=== PATIENT | female | born 1960 | race Caucasian/White ===

== ENCOUNTER 2018-09-22 11:34 | Emergency (ER) | payer OTHER ==
--- OUTSIDE RECORDS SUMMARY | 2018-09-22 11:37 | XMS REPORT ---
:1960 [facility] [address] [place] [address] Dr. Fla[address] [place] [id number] Care Team Providers Name Role Phone Unavailable Unavailable Unavailable Payers Payer Name Policy Type Policy Number Effective Date Expiration Date Problems This patient has no known problems. Allergies, Adverse Reactions, Alerts Allergy Allergy Status Severity Reaction(s) Onset Inactive Treating Comments Name Type Date Date Clinician Marin DA Active U 2018-08 (Sulfonami -17 de 00:00:0 Antibiotic 0 s) Medications This patient has no known medications.
[2018-09-22 12:26] LABS: Absolute Lymphocytes (CBC) 1.4 K/uL (0.7-4.9); Absolute Monocytes 0.4 K/uL (0.1-1.3); Absolute Neutrophil 3.1 K/uL (1.8-8.0); Eosinophils % 1.7 % (0-4.4); Lymphocytes % 28.3 % (15.3-44.8); MPV 8.7 fL (7.6-11.3); Monocytes % 7.1 % (3.3-12.3); RBC Red Blood Cell Count 3.92 M/uL (3.86-4.86)
[2018-09-22 12:29] LABS: Protime INR 1.08
--- NOTE | 2018-09-22 12:43 | RAD REPORT ---
EXAM DESCRIPTION: RAD - Chest Single View - 09/22/2018 12:36 pm CLINICAL HISTORY: DYSPNEA Chest pain. COMPARISON: ABDOMEN 1 VIEW KUB dated 11/10/2014; ABDOMEN 1 VIEW KUB dated 11/10/2013; ABDOMEN 1 VIEW KUB dated 11/06/2013; CHEST PA AND LAT 2 VIEW dated 10/31/2013; CTSTONE PROTOCOL dated 11/05/2013; CHEST PA AND LAT 2 VIEW dated 09/18/2011; Abdomen WWo Cont dated 03/05/2018 FINDINGS: Portable technique limits examination quality. The lungs are grossly clear. Significant cardiomegaly versus pericardial effusion present. No displac ed fractures.
[2018-09-22 12:45] LABS: ALT/SGPT 75 U/L (12-78); AST/SGOT 54 U/L (15-37); Albumin 3.7 g/dL (3.4-5.0); Alkaline Phosphatase 120 U/L (45-117); BUN Blood Urea Nitrogen 11 mg/dL (7-18); Bicarbonate 26 mmol/L (21-32); Bilirubin Direct 0.1 mg/dL (0-0.2); Bilirubin Total 0.4 mg/dL (0.2-1.0); Glucose Level 94 mg/dL (74-106); Magnesium 2.4 mg/dL (1.8-2.4); NT PRO-BNP 126 pg/mL (<125); Potassium 3.8 mmol/L (3.5-5.1); Protein, Total 7.5 g/dL (6.4-8.2); Sodium Level 143 mmol/L (136-145); Troponin (Emerg Dept Use Only) < 0.02 ng/mL (0.0-0.045)
--- NOTE | 2018-09-22 14:02 | RAD REPORT ---
EXAM DESCRIPTION: CT - Chest For Pe Angio - 09/22/2018 1:48 pm CLINICAL HISTORY: Chest pain. SOB COMPARISON: No comparisons TECHNIQUE: CT angiogram of the pulmonary arteries was performed with MIP. All CT scans are performed using dose optimization technique as appropriate and may include automated exposure control or mA/KV adjustment according to patient size. FINDINGS: No evidence of pulmonary thromboembolism. No acute aortic finding demonstrated. Mild interstitial pulmonary edema suspected with linear atelectasis in the left lung base. A large pericardial effusion is present, maximally measuring 4.5 cm in thickness. . No concerning bony finding. IMPRESSION: No evidence of pulmonary thromboembolism. Mild interstitial pulmonary edema with linear atelectasis in left lung base. A large pericardial effusion is present, measuring maximally 4.5 cm in thickness.
--- NOTE | 2018-09-22 15:09 | ER ---
Nurse's Notes [facility] Name: Robina Tamayo Age: 57 yrs Sex: Female : 1960 Arrival Date: 09/22/2018 Time: 11:35 Bed 8 Private MD: Brandon Jefferson Diagnosis: Pericardial effusion (noninflammatory);Dyspnea Presentation: 09/22 11:43 Presenting complaint: Patient states: Shortness of breath for the past 2 days. Reports aj1 that she had pericardial window surgery August 27, and the shortness of breath she is feeling now was similar to before she had surgery. Reports that she has shortness of breath just walking to her car. Reports substernal chest pain that she describes as heaviness and pressure that radiates to the right arm. Transition of care: patient was not received from another setting of care. Onset of symptoms was September 20, 2017. Risk Assessment: Do you want to hurt yourself or someone else? Patient reports no desire to harm self or others. Initial Sepsis Screen: Does the patient meet any 2 criteria? No. Patient's initial sepsis screen is negative. Does the patient have a suspected source of infection? No. Patient's initial sepsis screen is negative. Care prior to arrival: None. 11:43 Method Of Arrival: Ambulatory aj1 11:43 Acuity: LYNN 2 aj1 Triage Assessment: 11:47 General: Appears in no apparent distress. uncomfortable, Behavior is calm, cooperative, aj1 appropriate for age. Pain: Complains of pain in mid-sternal area Pain radiates to right arm Pain currently is 6 out of 10 on a pain scale. Neuro: Level of Consciousness is awake, alert, obeys commands. Cardiovascular: Reports chest pain, shortness of breath, Patient's skin is warm and dry. Respiratory: Reports shortness of breath Onset: The symptoms/episode began/occurred 2 days ago. Historical: - Allergies: 11:47 Sulfa (Sulfonamide Antibiotics); aj1 - Home Meds: 11:47 None [Active]; aj1 - PMHx: 11:47 pericardial effusion; aj1 - Immunization history:: Flu vaccine is up to date. - Social history:: Smoking status: Patient/guardian denies using tobacco. - Ebola Screening: : Patient denies travel to an Ebola-affected area in the 21 days before illness onset. Screenin:41 Abuse screen: Denies threats or abuse. Denies injuries from another. Nutritional ph screening: No deficits noted. Tuberculosis screening: No symptoms or risk factors identified. Fall Risk None identified. Assessment: 12:31 General: Appears in no apparent distress. comfortable, Behavior is cooperative, ph appropriate for age, anxious. Pain: Complains of pain in mid-sternal area Pain radiates to right arm Quality of pain is described as pressure. Neuro: Level of Consciousness is awake, alert, obeys commands, Oriented to person, place, time, situation. Cardiovascular: Reports chest pain, shortness of breath, Denies nausea, palpitations, vomiting, Capillary refill < 3 seconds in bilateral fingers Patient's skin is warm and dry. Rhythm is sinus rhythm. Respiratory: Airway is patent Respiratory effort is even, unlabored, Respiratory pattern is regular, symmetrical. 12:31 Respiratory: Reports shortness of breath on exertion Airway is patent Respiratory ph effort is even, unlabored, Respiratory pattern is regular, symmetrical, Breath sounds are clear bilaterally. GI: No signs and/or symptoms were reported involving the gastrointestinal system. Patient currently denies nausea, vomiting. Derm: Skin is intact, is healthy with good turgor, Skin is pink, warm \T\ dry. Musculoskeletal: Circulation, motion, and sensation intact. Range of motion: intact in all extremities. Vital Signs: 11:47 BP 126 / 95; Pulse 81; Resp 18; Temp 98.4; Pulse Ox 97% on R/A; Weight 80.29 kg (R); aj1 Height 5 ft. 2 in. (157.48 cm) (R); Pain 6/10; 12:42 BP 125 / 92; Pulse 71; Resp 18; Pulse Ox 96% on R/A; ph 13:23 BP 123 / 90; Pulse 62; Resp 15; Pulse Ox 94% ; sv 14:56 BP 119 / 75; Pulse 68; Resp 18; Pulse Ox 97% ; sv 15:30 BP 134 / 90; Pulse 71; Resp 13; Pulse Ox 98% on R/A; sv 16:03 BP 134 / 89; Pulse 69; Resp 18; Pulse Ox 97% on R/A; sv 11:47 Body Mass Index 32.37 (80.29 kg, 157.48 cm) [facility] ED Course: 11:35 Patient arrived in ED. sb2 11:35 Brandon Jefferson MD is Private Physician. sb2 11:47 Triage completed. aj1 11:47 Arm band placed on Patient placed in an exam room. aj1 11:[address] MD is Attending Physician. gs 11:52 Lisa José RN is Primary Nurse. ph 12:15 Initial lab(s) drawn, by hi, sent to lab. Inserted saline lock: 20 gauge in right ph antecubital area, using aseptic technique. Blood collected. 12:24 EKG done, by ED staff, reviewed by Pablo Way MD. em1 12:36 XRAY Chest (1 view) In Process Unspecified. EDMS 12:41 Patient has correct armband on for positive identification. Placed in gown. Bed in low ph position. Call light in reach. Side rails up X 1. ehs manager on. Pulse ox on. NIBP on. Door closed. Warm blanket given. Verbal reassurance given. 13:48 CT Chest For PE Angio In Process Unspecified. EDMS 13:48 CT completed. Patient tolerated procedure well. Patient moved back from CT. bq 15:00 No provider procedures requiring assistance completed. Patient transferred, IV remains sv in place. intact. Administered Medications: No medications were administered Outcome: 14:59 Transferred by ground EMS Transfer form completed. X-rays sent w/ patient. Note: sv Report called to Marlen WHITNEY at [facility]. 14:59 Condition: stable 14:59 Instructed on the need for transfer. 15:08 ER care complete, transfer ordered by . 16:30 Patient left the ED. ph Signatures: Dispatcher [employer] EDMS Agnieszka Sargent, RN DEVONTE aj1 Maite Torres RN RN Padmini Cobos Eric em1 iLsa José, RN RN Pablo Way MD MD Eliane Pulido sb2
--- NOTE | 2018-09-22 15:09 | EDPHYS ---
Physician Documentation [facility] Name: Robina Tamayo Age: 57 yrs Sex: Female : 1960 Arrival Date: 09/22/2018 Time: 11:35 Bed 8 Private MD: Brandon Jefferson ED Physician Pablo Way HPI: 09/22 15:00 This 57 yrs old Female presents to ER via Ambulatory with complaints of gs Shortness Of Breath. 15:00 The patient has shortness of breath at rest, with light activity, during heavy gs activity. Onset: The symptoms/episode began/occurred 5 day(s) ago, and became worse and became persistent. Duration: The symptoms are continuous. The patient's shortness of breath is aggravated by exertion. Associated signs and symptoms: Pertinent negatives: chest pain, non-productive cough. Severity of symptoms: At their worst the symptoms were moderate in the emergency department the symptoms are unchanged. The patient has experienced similar episodes in the past, a few times. The patient has been recently seen by a physician: with similar presenting complaints, surgery done pericardial window. Historical: - Allergies: 11:47 Sulfa (Sulfonamide Antibiotics); aj1 - Home Meds: 11:47 None [Active]; aj1 - PMHx: 11:47 pericardial effusion; aj1 - Immunization history:: Flu vaccine is up to date. - Social history:: Smoking status: Patient/guardian denies using tobacco. - Ebola Screening: : Patient denies travel to an Ebola-affected area in the 21 days before illness onset. ROS: 15:00 All other systems are negative. gs Exam: 15:00 Head/Face: Normocephalic, atraumatic. Eyes: Pupils equal round and reactive to light, gs extra-ocular motions intact. Lids and lashes normal. Conjunctiva and sclera are non-icteric and not injected. Cornea within normal limits. Periorbital areas with no swelling, redness, or edema. ENT: Nares patent. No nasal discharge, no septal abnormalities noted. Tympanic membranes are normal and external auditory canals are clear. Oropharynx with no redness, swelling, or masses, exudates, or evidence of obstruction, uvula midline. Mucous membranes moist. Neck: Trachea midline, no thyromegaly or masses palpated, and no cervical lymphadenopathy. Supple, full range of motion without nuchal rigidity, or vertebral point tenderness. No Meningismus. Chest/axilla: Normal chest wall appearance and motion. Nontender with no deformity. No lesions are appreciated. Abdomen/GI: Soft, non-tender, with normal bowel sounds. No distension or tympany. No guarding or rebound. No evidence of tenderness throughout. Back: No spinal tenderness. No costovertebral tenderness. Full range of motion. Skin: Warm, dry with normal turgor. Normal color with no rashes, no lesions, and no evidence of cellulitis. MS/ Extremity: Pulses equal, no cyanosis. Neurovascular intact. Full, normal range of motion. Neuro: Awake and alert, GCS 15, oriented to person, place, time, and situation. Cranial nerves II-XII grossly intact. Motor strength 5/5 in all extremities. Sensory grossly intact. Cerebellar exam normal. Normal gait. 15:00 Constitutional: The patient appears alert, awake. 15:00 Cardiovascular: Rate: normal, Rhythm: regular, Pulses: no pulse deficits are appreciated, Heart sounds: normal. 15:00 ECG was reviewed by the Attending Physician. Vital Signs: 11:47 BP 126 / 95; Pulse 81; Resp 18; Temp 98.4; Pulse Ox 97% on R/A; Weight 80.29 kg (R); aj1 Height 5 ft. 2 in. (157.48 cm) (R); Pain 6/10; 12:42 BP 125 / 92; Pulse 71; Resp 18; Pulse Ox 96% on R/A; ph 13:23 BP 123 / 90; Pulse 62; Resp 15; Pulse Ox 94% ; sv 14:56 BP 119 / 75; Pulse 68; Resp 18; Pulse Ox 97% ; sv 15:30 BP 134 / 90; Pulse 71; Resp 13; Pulse Ox 98% on R/A; sv 16:03 BP 134 / 89; Pulse 69; Resp 18; Pulse Ox 97% on R/A; sv 11:47 Body Mass Index 32.37 (80.29 kg, 157.48 cm) aj1 MDM: 12:03 Patient medically screened. 15:00 Differential diagnosis: CHF exacerbation, Myocardial Infarction pneumonia, pericardial gs effusion. Data reviewed: vital signs, nurses notes. 09/22 12:04 Order name: Basic Metabolic Panel; Complete Time: 13:12 09/22 12:04 Order name: CBC with Diff; Complete Time: 13:12 09/22 12:04 Order name: LFT's; Complete Time: 13:12 09/22 12:04 Order name: Magnesium; Complete Time: 13:12 09/22 12:04 Order name: NT PRO-BNP; Complete Time: 13:12 09/22 12:04 Order name: PT-INR; Complete Time: 13:12 09/22 12:04 Order name: Troponin (emerg Dept Use Only); Complete Time: 13:12 09/22 12:04 Order name: XRAY Chest (1 view); Complete Time: 13:12 09/22 12:04 Order name: EKG; Complete Time: 12:05 09/22 12:04 Order name: Cardiac monitoring; Complete Time: 12:43 09/22 12:04 Order name: EKG - Nurse/Tech; Complete Time: 12:24 09/22 12:04 Order name: IV Saline Lock; Complete Time: 12:43 09/22 12:04 Order name: Labs collected and sent; Complete Time: 12:43 09/22 12:05 Order name: CT Chest For PE Angio; Complete Time: 14:05 09/22 12:04 Order name: O2 Per Protocol; Complete Time: 12:44 09/22 12:04 Order name: O2 Sat Monitoring; Complete Time: 12:44 gs EC:00 Rate is 71 beats/min. Rhythm is regular. MT interval is normal. QRS interval is normal. QT interval is normal. T waves are Normal. No ST changes noted. Clinical impression: Abnormal EKG without significant change and low amp qrs no alternas. Interpreted by me. Administered Medications: No medications were administered Disposition: 15:00 Critical Care:. Disposition: 09/22/18 15:08 Transfer ordered to Other Acute Care Facility. Diagnosis are Pericardial effusion (noninflammatory), Dyspnea. - Reason for transfer: Higher level of care. - Accepting physician is alkshmi. - Condition is Stable. - Problem is an acute exacerbation. - Symptoms are unchanged. Critical care time excluding procedures: 15:00 Critical care time: Bedside Care: 10 minutes, Consultation: 10 minutes, Family gs Intervention: 10 minutes. Total time: 30 minutes Signatures: Dispatcher [employer] Agnieszka Howell RN RN aj1 Lisa José RN RN ph Way, MD MD demetri Shah Corrections: (The following items were deleted from the chart) 16:30 15:08 09/22/2018 15:08 Transfer ordered to Other Acute Care Facility. Diagnosis is ph Pericardial effusion (noninflammatory); Dyspnea. Reason for transfer: Higher level of care. Accepting physician is lakshmi. Condition is Stable. Problem is an acute exacerbation. Symptoms are unchanged. gs
--- NOTE | 2018-09-22 16:25 | EKG ---
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
[2018-09-22 16:59] VITALS: TEMP 98.4
[2018-09-22 17:03] VITALS: BP 119/75; O2SAT 97
== END 2018-09-22 16:30 ==
LOC: ER 11:34
DX: I31.3 Pericardial effusion (noninflammatory) (principal); R06.00 Dyspnea, unspecified; Z88.2 Allergy status to sulfonamides
CPT/HCPCS: 36415; 71045; 71275; 80048; 80076; 83735; 83880; 84484; 85025; 85610; 93005; 99285; Q9967

== ENCOUNTER 2018-12-01 03:40 | Emergency (ER) | payer OTHER ==
--- OUTSIDE RECORDS SUMMARY | 2018-12-01 03:43 | XMS REPORT ---
:1960 [facility] [address] [place] [id number] Care Team Providers Name Role Phone Unavailable Unavailable Unavailable Payers Payer Name Policy Type Policy Number Effective Date Expiration Date Problems This patient has no known problems. Allergies, Adverse Reactions, Alerts Allergy Allergy Status Severity Reaction(s) Onset Inactive Treating Comments Name Type Date Date Clinician Sulfa DA Active U 2018-08 (Sulfonami -17 de 00:00:0 Antibiotic 0 s) Medications This patient has no known medications. Results Test Description Test Time Test Comments Text Results Atomic Results Result Comments TB TEST IGRA 2018-10-04 07:40:00 Test Item Value Reference Range Comments TB TEST IGRA (test code=TBTEST) Negative Negative HIV 12 AB [id number] 07:40:00 Test Item Value Reference Range Comments AB HIV 1 2 (test NON REACTIVE NON-REAC NOTE: A NONREACTIVE RESULT code=LGH00CM) INDICATES THAT HIV-1 AND HIV-2ANTIBODIES HAVE NOT BEEN FOUND IN THIS PATIENT SPECIMEN. ANON-REACTIVE RESULT, HOWEVER, DOES NOT PRECLUDE PREVIOUSEXPOSURE OR INFECTION WITH HIV1. AG HIV1 P24 (test NON REACTIVE NONE REAC code=LBB3M47) AB [id number] 07:25:00 Test Item Value Reference Range Comments AB COCCIDIOIDES (test code=COCCIAB) <0.150 < 1:2 AG HISTOPLASMA [id number] 07:21:00 Test Item Value Reference Range Comments AG HISTOPLASMA UA (test code=HISUAAG) <0.5 EIA unit <0.5 ng/mL TB TEST [id number] 13:27:00 Test Item Value Reference Range Comments TB TEST IGRA (test code=TBTEST) Negative HIV 12 AB [id number] 13:27:00 Test Item Value Reference Range Comments AB HIV 1 2 (test NON REACTIVE NON-REAC NOTE: A NONREACTIVE RESULT code=MLG81RR) INDICATES THAT HIV-1 AND HIV-2ANTIBODIES HAVE NOT BEEN FOUND IN THIS PATIENT SPECIMEN. ANON-REACTIVE RESULT, HOWEVER, DOES NOT PRECLUDE PREVIOUSEXPOSURE OR INFECTION WITH HIV1. AG HIV1 P24 (test NON REACTIVE NONE REAC code=ANT3O13) - XR CHEST 2 [id number] 12:57:00 Patient Name: SEBASTIAN VILLAFUERTE Unit No: [id number] EXAMS: CPT CODE: [id number] XR CHEST 2 V 41033 EXAMINATION: - XR CHEST 2 V. LOCATION: B2. HISTORY: Cough. COMPARISON: Radiograph dated 09/28/2018. TECHNIQUE: PA and lateral views of the chest were obtained. FINDINGS: The heart is enlarged in size.Hazy opacities are seen in bilateral lung bases, which correlates to overlying breast tissue.Right middle lobe opacities are present. There is blunting of the right costophrenic angle. No acute osseous abnormality is identified. IMPRESSION: Right middle lobe opacities, which may represent atelectasis or infiltrates. Small right pleural effusion. Cardiomegaly. Electronically Signed by Muna White 10/01/2018 at 1257 Reported and signed by: Muna Jolley MD CC: Elier Mota Technologist: Mariana Cooper RT(R) Transcrpt Date/Tm/Trnsp: 10/01/2018 (1257) [email or web address] Orig Print D/T: S: 10/01/2018 (1300) [facility] NAME: SEBASTIAN VILLAFUERTE [id number] [address] PHYS: Elier Bianchi [facility] [place] [address] : AGE: 57 SEX: F LOC: Z.359 A PHONE #: [phone] EXAM DATE: 10/01/2018 STATUS: ADM IN FAX #: [phone] RADIOLOGY NO: PAGE 1 Signed ReportLACTIC DEHYDROGENASE(LDH)2018-10-01 07:16:00 Test Item Value Reference Range Comments LACTIC DEHYDROGENASE(LDH) (test code=LDH) 401 UNITS/L 313-618 VANCOMYCIN [id number] 12:18:00 Test Item Value Reference Range Comments VANCOMYCIN TROUGH (test code=VANCT) 9.9 UG/ML 10.0-20.0 BASIC METABOLIC [id number] 05:15:00 Test Item Value Reference Range Comments SODIUM (test code=NA) 138 MMOL/L 137-145 POTASSIUM (test code=K) 4.0 MMOL/L 3.5-5.1 CHLORIDE (test code=CL) 105 MMOL/L 98-107 CARBON DIOXIDE (test code=CO2) 27 MMOL/L 22-30 GLUCOSE (test code=GLU) 104 MG/DL 74-106 BLOOD UREA NITROGEN (test 9 MG/DL 7-17 code=BUN) GLOMERULAR FILTRATION RATE > 60 Reporting units: ml/min/1.73 (test code=GFR) m2 (Modified MDRD Formula)Reference Range: > or=60 ml/min/1.73 m2 CREATININE (test code=CREAT) 0.60 MG/DL 0.52-1.04 CALCIUM (test code=CA) 9.0 MG/DL 8.4-10.2 CBC W/AUTO [id number] 04:36:00 Test Item Value Reference Range Comments WHITE BLOOD CELL (test code=WBC) 11.4 K/MM3 3.8-9.8 RED BLOOD CELL (test code=RBC) 3.78 M/MM3 3.58-4.97 HEMOGLOBIN (test code=HGB) 11.1 G/DL 11.2-14.9 HEMATOCRIT (test code=HCT) 33.9 % 33.2-43.5 MEAN CELL VOLUME (test code=MCV) 90 fL 80.7-99.1 MEAN CELL HGB (test code=MCH) 29.4 pg 27.0-34.1 MEAN CELL HGB CONCETRATION (test code=MCHC) 32.7 % 32.2-35.7 RED CELL DISTRIBUTION WIDTH (test code=RDW) 13.2 % 12.1-15.2 PLATELET COUNT (test code=PLT) 195 K/MM3 129-368 MEAN PLATELET VOLUME (test code=MPV) 10.9 fl 7.4-10.4 NEUTROPHIL % (test code=NT%) 76.1 % 43-75 IMMATURE GRANULOCYTE % (test code=IG%) 0.4 % 0.0-2.0 LYMPHOCYTE % (test code=LY%) 11.0 % 14-44 MONOCYTE % (test code=MO%) 10.1 % 4-13 EOSINOPHIL % (test code=EO%) 2.0 % 0-6 BASOPHIL % (test code=BA%) 0.4 % 0-2 NUCLEATED RBC % (test code=NRBC%) 0.0 % 0-1.0 NEUTROPHIL # (test code=NT#) 8.7 K/mm3 2.0-7.6 IMMATURE GRANULOCYTE # (test code=IG#) 0.04 x10 3/uL 0-0.03 LYMPHOCYTE # (test code=LY#) 1.3 K/mm3 1.0-3.8 MONOCYTE # (test code=MO#) 1.15 K/mm3 0.1-0.8 EOSINOPHIL # (test code=EO#) 0.2 K/mm3 0.0-0.2 BASOPHIL # (test code=BA#) 0.05 K/mm3 0.0-0.2 NUCLEATED RBC # (test code=NRBC#) 0.0 K/mm3 0.0-0.1 - CT CHEST W W/O [id number] 16:33:00 Patient Name: SEBASTIAN VILLAFUERTE Unit No: [id number] EXAMS: CPT CODE: [id number] CT CHEST W W/O CONT 04592 Contrast-enhanced CT of the chest CLINICAL INDICATION: Abnormal chest x-ray, fever COMPARISON: Portable chest x-ray dated 2018 at 6:46 AM Location R [address] is obtained from lung apices to bases before and afterintravenous contrast and with axial, coronal and sagittal reconstructions provided. One or more the following dose reduction techniques were used: Automated exposure control, adjustment of mA and/or kV according to patient size, and use of iterative reconstruction technique. DLP 837.165 mGy-cm. Patient is status post pericardial surgery with a midline incision at the xiphoid and emphysema extending into the anterior mediastinum and pericardium on the right. A small amount of layering pericardial fluid on the left measures 8 to 9mm. Emphysematous fluid in the anterior mediastinum on the right measures 11 mm in width. Mild Pneumopericardium is demonstrated. There is a small fluid collection in the subxiphoid position which contains enhancing fluid and gas density measuring approximately 2 cm around diameter. Infiltration with subcutaneous fluid and emphysema is demonstrated in the subcutaneous tissues at the incision likely representing cellulitis. Heart is normal in size. Great vessels are normal in caliber. Right IJ catheter is present. Lymph nodes are demonstrated at the aortopulmonary window measuring up to 17 mm, likely reactive. Additional smaller lymph nodes are demonstrated in the pretracheal position. Lungs are largely clear except for small right pleural effusion and pulmonary nodules in theright middle lobe measuring 10 mm and 4 mm respectively. Follow-up in 6 examination in 6 -12 months is recommended to follow these nodules. Calcifications are demonstrated in the left renal hilum consistent with intrarenal calculi. Bony structures are unremarkable IMPRESSION: 1. Patient is status post pericardial window with pneumopericardium and mediastinal emphysema extending from the subxiphoid position to the right anterior mediastinum. 2. Small residual of pericardial effusion ispresent. [facility] NAME: SEBASTIAN VILLAFUERTE [id number] PHYS: E[place], [place] [address]LFU: 1960 AGE: 57 SEX: F LOC:Z.359 A PHONE #: [phone] EXAM DATE: STATUS: ADM IN FAX #: [phone] RAD #: D/C DT PAGE 1 SignedReport (CONTINUED) Patient Name: SEBASTIAN VILLAFUERTE Unit No: [id number] EXAMS: CPT CODE : [id number] CT CHEST WW/O CONT 90819 <Continued> 3. Small fluid collection measuring approximately 2 cm is demonstrated adjacent to the anterior right heart border in the subxiphoid position. 4. Subcutaneous emphysema and infiltration of the anterior chest wall suggesting cellulitis 5. Reactive mediastinal lymphadenopathy. 6. Small right middle lobe pulmonary nodules are demonstrated, requiring short-term follow-up in 6-12 months to document their stability. at 1633 Reported and signed by: Susie Burns M.D. CC: Elier Mota Technologist: KRISTINE CANO RT(R)(CT)( MR); CTDI: DLP: Trnscrpt: 09/28/2018 (966) [facility] NAME: SEBASTIAN VILLAFUERTE [id number] PHYS: [place] [address] : 1960 AGE: 57 SEX: F LOC: Z.359 A PHONE #: [phone] EXAM DATE: 09/28/2018 STATUS: ADM IN FAX #: [phone] RAD #: D/C DT PAGE 2 Signed Report Patient Name: SEBASTIAN VILLAFUERTE Unit No: [id number] EXAMS: CPT CODE: [id number] CT CHEST W W/O CONT 28982 <Continued> Orig Print D/T: S: 09/28/2018 (759 ) [facility] NAME: SEBASTIAN VILLAFUERTE [address] PHYS: [place] [address] : 1960 AGE: 57 SEX: F LOC: Z.359 A PHONE #: [phone] EXAM DATE: 09/28/2018 STATUS: ADM IN FAX #: [phone] RAD #: D/C DT PAGE 3 Signed ReportLACTIC [id number] 14:15:00 Test Item Value Reference Range Comments LACTIC ACID (test code=LACT) 1.1 MMOL/L 0.7-2.1 URINALYSIS [id number] 10:34:00 Test Item Value Reference Range Comments UA COLOR (test code=COLU) YELLOW YELLOW UA APPEARANCE (test code=APPU) CLEAR CLEAR UA GLUCOSE DIPSTICK (test code=DGLUU) NORMAL MG/DL NORMAL UA BILIRUBIN DIPSTICK (test code=BILU) NEGATIVE MG/DL NEGATIVE UA KETONE DIPSTICK (test code=KETU) NEGATIVE MG/DL NEGATIVE UA SPECIFIC GRAVITY (test code=SGU) 1.010 1.003-1.030 UA BLOOD DIPSTICK (test code=MELINA) 50 Case/mm3 NEGATIVE UA PH DIPSTICK (test code=HO) 6.5 5.0-9.0 UA PROTEIN DIPSTICK (test code=PROU) NEGATIVE MG/DL NEGATIVE UA UROBILINIOGEN DIPSTICK (test NORMAL MG/DL NORMAL code=URO) UA NITRITE DIPSTICK (test code=LOGAN) NEGATIVE NEGATIVE UA LEUKOCYTE ESTERASE DIPSTICK (test NEGATIVE /mm3 NEGATIVE code=LEUU) UA CULTURE NEEDED? (test code=UACULT) NO, WBC<10 Criteria Culture Chk UA [id number] 10:34:00 Test Item Value Reference Range Comments UA RBC (test code=RBCU) NONE RBC/HPF 0-3 UA WBC (test code=XWBCU) 0-3 WBC/HPF 0-5 UA EPITHELIAL CELLS (test code=EPIU) RARE EPI/HPF FEW UA BACTERIA (test code=XBACU) RARE NONE UA MUCUS (test code=MUCU) MODERATE #/LPF NONE URINALYSIS [id number] 10:19:00 Test Item Value Reference Range Comments UA COLOR (test code=COLU) YELLOW YELLOW UA APPEARANCE (test code=APPU) CLEAR CLEAR UA GLUCOSE DIPSTICK (test code=DGLUU) NORMAL MG/DL NORMAL UA BILIRUBIN DIPSTICK (test code=BILU) NEGATIVE MG/DL NEGATIVE UA KETONE DIPSTICK (test code=KETU) NEGATIVE MG/DL NEGATIVE UA SPECIFIC GRAVITY (test code=SGU) 1.010 1.003-1.030 UA BLOOD DIPSTICK (test code=MELINA) 50 Case/mm3 NEGATIVE UA PH DIPSTICK (test code=HO) 6.5 5.0-9.0 UA PROTEIN DIPSTICK (test code=PROU) NEGATIVE MG/DL NEGATIVE UA UROBILINIOGEN DIPSTICK (test code=URO) NORMAL MG/DL NORMAL UA NITRITE DIPSTICK (test code=LOGAN) NEGATIVE NEGATIVE UA LEUKOCYTE ESTERASE DIPSTICK (test NEGATIVE /mm3 NEGATIVE code=LEUU) UA CULTURE NEEDED? (test code=UACULT) Criteria Culture k UA [id number] 10:19:00 Test Item Value Reference Range Comments UA RBC (test code=RBCU) RBC/HPF 0-3 UA WBC (test code=XWBCU) WBC/HPF 0-5 UA EPITHELIAL CELLS (test code=EPIU) EPI/HPF FEW UA BACTERIA (test code=XBACU) NONE URINALYSIS [id number] 10:19:00 Test Item Value Reference Range Comments UA COLOR (test code=COLU) YELLOW YELLOW UA APPEARANCE (test code=APPU) CLEAR CLEAR UA GLUCOSE DIPSTICK (test code=DGLUU) NORMAL MG/DL NORMAL UA BILIRUBIN DIPSTICK (test code=BILU) NEGATIVE MG/DL NEGATIVE UA KETONE DIPSTICK (test code=KETU) NEGATIVE MG/DL NEGATIVE UA SPECIFIC GRAVITY (test code=SGU) 1.010 1.003-1.030 UA BLOOD DIPSTICK (test code=MELINA) 50 Case/mm3 NEGATIVE UA PH DIPSTICK (test code=HO) 6.5 5.0-9.0 UA PROTEIN DIPSTICK (test code=PROU) NEGATIVE MG/DL NEGATIVE UA UROBILINIOGEN DIPSTICK (test code=URO) NORMAL MG/DL NORMAL UA NITRITE DIPSTICK (test code=LOGAN) NEGATIVE NEGATIVE UA LEUKOCYTE ESTERASE DIPSTICK (test NEGATIVE /mm3 NEGATIVE code=LEUU) UA CULTURE NEEDED? (test code=UACULT) Criteria Culture Chk UA [id number] 10:19:00 Test Item Value Reference Range Comments UA RBC (test code=RBCU) RBC/HPF 0-3 UA WBC (test code=XWBCU) WBC/HPF 0-5 UA EPITHELIAL CELLS (test code=EPIU) EPI/HPF FEW UA BACTERIA (test code=XBACU) NONE [id number] 10:08:00 Test Item Value Reference Range Comments D-DIMER (test 10.64 MG/L FEU 0-0.49 Negative Predictive Value cutoff code=DDIMER) for DVT & PE: <0.50 mg/L FEUInterpretation: A value of <0.50 mg/L FEU has a NegativePredictive Value in ruling out a DVT or PE diagnosis.A value of 0.50 mg/L or greater is considered Positive.Positive result cannot be used for the diagnosis of DVT andPE without using of standard radiological procedures. PROCALCITONIN (PCT)2018-09-28 10:04:00 Test Item Value Reference Range Comments PROCALCITONIN (PCT) (test 0.07 NG/ML PROCALCITONIN (PCT) NORMAL code=PROCAL) RANGE (ADULT):<0.05 NG/ML. - a concentration < 0.5 ng/mL represents a low risk ofsevere sepsis and/or septic shock. - a concentration > 2 ng/mL represents a high risk ofsevere sepsis and/or septic shock. Nevertheless, concentrations < 0.5 ng/mL do not exclude aninfection, on account of localized infections (withoutsystemic signs) which can be associated with such lowconcentrations, or a systemic infection in its initialstages (< 6 hours). Furthermore, increased procalcitonincan occur without infection. PCT concentrations between 0.5and 2.0 ng/mL should be interpreted taking into account thepatient's history. It is recommended to retest PCT within 6-24 hours if any concentrations < 2 ng/mL are obtained. C REACTIVE [id number] 09:52:00 Test Item Value Reference Range Comments C REACTIVE PROTEIN (test code=CRP) 7.50 MG/DL 0.00-9.99 LACTIC [id number] 09:49:00 Test Item Value Reference Range Comments LACTIC ACID (test code=LACT) 2.1 MMOL/L 0.7-2.1 - XR CHEST [id number] 08:48:00 Patient Name: SEBASTIAN VILLAFUERTE Unit No: [id number] EXAMS: CPT CODE: [id number] XR CHEST 1V 28498 CLINICAL HISTORY: Status post chest tube removal, pericardial effusion. LOCATION: E5 FINDINGS: Comparison is made with a previous study dated September 27, 2018. A portable AP view of the chest is dated September 28, 2017 at 0646 hours. There is stable mild cardiomegaly. No change in tubes or lines. Moderate infiltrate remainsat the left lower lung. Moderate infiltrate at the right lower lung appears increased. No definite pleural effusions. No acute skeletal or soft tissue abnormalities. IMPRESSION: 1. Stable moderate infiltrate at the left lower lung. Moderate infiltrate at the right lower lung appears increased. at 0848 Reported and signed by: Antoine Maldonado MD CC: Elier Mota; Alma Delia Alvarado NP Technologist: Carson Mendoza, RT(R) Transcrpt Date/Tm/Trnsp: 09/28/2018 (0848) [id number] Print D/T: S : 09/28/2018 (0851) [facility] NAME: SEBASTIAN VILLAFUERTE [id number] PHYS: SHASTA.[place]ney [place] [address] : 1960 AGE: 57 SEX: F LOC: Z.359 A PHONE #: [phone] EXAM DATE: 09/28/2018 STATUS: ADM IN FAX #: [phone] RADIOLOGY NO: PAGE 1 Signed [id number] 05:24:00 Test Item Value Reference Range Comments MAGNESIUM (test code=MAG) 2.1 MG/DL 1.6-2.3 - XR CHEST [id number] 10:32:00 Patient Name: SEBASTIAN VILLAFUERTE Unit No: [id number] EXAMS: CPT CODE: [id number] XR CHEST 1V 26651 Chest Radiograph History: post chest tube removalComparison: None at this time Location: R16 A single frontal view of thechest is submitted. The heart appears unchanged in size. Pulmonary vasculatureis unremarkable. The visualized lung ramirez appear to be free of disease. The bones appear unchanged. The previously identified chest tube has been removed. The vascular catheter appears unchanged. IMPRESSION: There is no radiographic evidence of acute cardiopulmonary disease. at 1032 Reported and signed by: Chintan Neville MD CC: Elier Mota; Alma Delia Alvarado USER EXPERIENCE RESEARCHER Technologist: Richardson Hallman, (RT) (R) Transcrpt Date/Tm/Trnsp: 09/27/2018 (1032) KatharinePMT Orig Print D/T: S: 09/27/2018 (1035) [facility] NAME: SEBASTIAN VILLAFUERTE [address] PHYS : SHASTA.- [place] [address] : [birth year] AGE: 57 SEX: F LOC: Z.SI07 A PHONE #: [phone] EXAM DATE: 09/27/2018 STATUS: ADM IN FAX #: [phone] RADIOLOGY NO: PAGE 1 Signed Report- XR CHEST [id number] 07:42:00 Patient Name: SEBASTIAN VILLAFUERTE Unit No: [id number] EXAMS: CPT CODE: [id number] XR CHEST 1V 97123 Chest Radiograph History: EVALUATE PERICARDIAL EFFUSION Comparison: September 26, 2018 Location: R16 A single frontal view of the chest is submitted. The heart appears unchanged in size. Pulmonary vasculature is unremarkable. There is minimal left basilar atelectasis. The bones appear unchanged. The vascular catheter appears unchanged. A chest tube is again identified. IMPRESSION: There is minimal left basilar atelectasis. This appears improved compared to the prior exam. The cardiomediastinal silhouette appears relatively unchanged. at 0742 Reported and signed by: Chintan Neville MD CC: Elier Mota Technologist: RT Roc(R) Transcrpt Date/Tm/Trnsp: 09/27/2018 (0742) t.ABHI Orig Print D/T: S: 09/27/2018 (0746) [facility] NAME: SEBASTIAN VILLAFUERTE [address] PHYS: [place] [address] : 1960 AGE: 57 SEX: F LOC: Z.SI07 A PHONE #: [phone] EXAM DATE : 09/27/2018 STATUS: ADM IN FAX #: [phone] RADIOLOGY NO: PAGE 1Signed ReportC REACTIVE [id number] 07:22:00 Test Item Value Reference Range Comments C REACTIVE PROTEIN (test code=CRP) 1.20 MG/DL 0.00-9.99 AB DNA DOUBLE [id number] 07:22:00 Test Item Value Reference Range Comments AB DNA DOUBLE STRAND (test <1 IU/mL 0-9 code=DNADSAB) Negative <5 Equivocal 5 - 9 Positive >9Performed At: [facility] [id number] [place], [place] [id number] Roverto Campa MD Ph:[phone] COMPREHENSIVE METABOLIC [id number] 06:09:00 Test Item Value Reference Range Comments SODIUM (test code=NA) 139 MMOL/L 137-145 POTASSIUM (test code=K) 4.0 MMOL/L 3.5-5.1 CHLORIDE (test code=CL) 106 MMOL/L 98-107 CARBON DIOXIDE (test code=CO2) 29 MMOL/L 22-30 GLUCOSE (test code=GLU) 97 MG/DL 74-106 BLOOD UREA NITROGEN (test 9 MG/DL 7-17 code=BUN) GLOMERULAR FILTRATION RATE > 60 Reporting units: ml/min/1.73 (test code=GFR) m2 (Modified MDRD Formula)Reference Range: > or=60 ml/min/1.73 m2 CREATININE (test code=CREAT) 0.60 MG/DL 0.52-1.04 TOTAL PROTEIN (test code=PROT) 6.6 G/DL 6.3-8.2 ALBUMIN (test code=ALB) 3.1 G/DL 3.5-5.0 CALCIUM (test code=CA) 9.0 MG/DL 8.4-10.2 BILIRUBIN TOTAL (test 0.5 MG/DL 0.2-1.3 code=BILT) SGOT/AST (test code=AST) 37 UNITS/L 14-36 SGPT/ALT (test code=ALT) 32 UNITS/L 9-52 ALKALINE PHOSPHATASE (test 79 UNITS/L 38-126 code=ALKP) [id number] 06:09:00 Test Item Value Reference Range Comments MAGNESIUM (test code=MAG) 2.2 MG/DL 1.6-2.3 CBC W/AUTO [id number] 05:15:00 Test Item Value Reference Range Comments WHITE BLOOD CELL (test code=WBC) 4.9 K/MM3 3.8-9.8 RED BLOOD CELL (test code=RBC) 3.86 M/MM3 3.58-4.97 HEMOGLOBIN (test code=HGB) 11.4 G/DL 11.2-14.9 HEMATOCRIT (test code=HCT) 35.2 % 33.2-43.5 MEAN CELL VOLUME (test code=MCV) 91 fL 80.7-99.1 MEAN CELL HGB (test code=MCH) 29.5 pg 27.0-34.1 MEAN CELL HGB CONCETRATION (test code=MCHC) 32.4 % 32.2-35.7 RED CELL DISTRIBUTION WIDTH (test code=RDW) 13.3 % 12.1-15.2 PLATELET COUNT (test code=PLT) 197 K/MM3 129-368 MEAN PLATELET VOLUME (test code=MPV) 10.5 fl 7.4-10.4 NEUTROPHIL % (test code=NT%) 50.6 % 43-75 IMMATURE GRANULOCYTE % (test code=IG%) 0.2 % 0.0-2.0 LYMPHOCYTE % (test code=LY%) 31.6 % 14-44 MONOCYTE % (test code=MO%) 9.3 % 4-13 EOSINOPHIL % (test code=EO%) 7.5 % 0-6 BASOPHIL % (test code=BA%) 0.8 % 0-2 NUCLEATED RBC % (test code=NRBC%) 0.0 % 0-1.0 NEUTROPHIL # (test code=NT#) 2.5 K/mm3 2.0-7.6 IMMATURE GRANULOCYTE # (test code=IG#) 0.01 x10 3/uL 0-0.03 LYMPHOCYTE # (test code=LY#) 1.6 K/mm3 1.0-3.8 MONOCYTE # (test code=MO#) 0.46 K/mm3 0.1-0.8 EOSINOPHIL # (test code=EO#) 0.4 K/mm3 0.0-0.2 BASOPHIL # (test code=BA#) 0.04 K/mm3 0.0-0.2 NUCLEATED RBC # (test code=NRBC#) 0.0 K/mm3 0.0-0.1
[2018-12-01] MEDS ORDERED: IBUPROFEN 400 MG TAB ONE (04:04)
[2018-12-01] MEDS ORDERED: ACETAMINOPHEN 500 MG TAB ONE (04:04)
[2018-12-01] MEDS ORDERED: IBUPROFEN 200 MG TAB PO ONE (04:05)
[2018-12-01 04:37] LABS: Absolute Lymphocytes (CBC) 0.7 K/uL (0.7-4.9); Absolute Monocytes 0.3 K/uL (0.1-1.3); Absolute Neutrophil 7.2 K/uL (1.8-8.0); Basophils % 0.3 % (0-1.3); Eosinophils % 0.1 % (0-4.4); Hematocrit 34.7 % (36.0-45.0); Lymphocytes % 8.2 % (15.3-44.8); MPV 8.1 fL (7.6-11.3); Monocytes % 3.6 % (3.3-12.3); RBC Red Blood Cell Count 3.99 M/uL (3.86-4.86)
[2018-12-01 04:42] LABS: Protime INR 1.05
[2018-12-01 05:02] LABS: ALT/SGPT 88 U/L (12-78); AST/SGOT 57 U/L (15-37); Albumin 2.7 g/dL (3.4-5.0); Alkaline Phosphatase 148 U/L (45-117); BUN Blood Urea Nitrogen 13 mg/dL (7-18); Bicarbonate 25 mmol/L (21-32); Bilirubin Direct 0.3 mg/dL (0-0.2); Bilirubin Total 0.8 mg/dL (0.2-1.0); Glucose Level 136 mg/dL (74-106); Magnesium 1.8 mg/dL (1.8-2.4); NT PRO-BNP 383 pg/mL (<125); Potassium 4.1 mmol/L (3.5-5.1); Protein, Total 6.7 g/dL (6.4-8.2); Sodium Level 138 mmol/L (136-145); Troponin (Emerg Dept Use Only) < 0.02 ng/mL (0.0-0.045)
[2018-12-01 05:09] LABS: Platelet Estimate ADEQ; Urine White Blood Cell Casts OK
[2018-12-01 05:10] LABS: Blood Morphology Comment NOT SEEN (NOT SEEN)
[2018-12-01] MEDS ORDERED: CEFTRIAXONE/SWI 1gm 1 GM/10 ML SYR ONE (06:41)
[2018-12-01 06:44] LABS: Urine Appearance TURBID; Urine Bilirubin NEGATIVE (NEG); Urine Blood 3+ (NEG); Urine Color YELLOW; Urine Glucose NEGATIVE (NEG); Urine Protein 2+ (NEG); Urine Specific Gravity 1.015 (1.005-1.030); Urine Urobilinogen 0.2 mg/dL (0.2-1.0); Urine pH 6.5 (5.0-7.0)
--- NOTE | 2018-12-01 07:17 | ER ---
Nurse's Notes [facility] Name: Robina Tamayo Age: 57 yrs Sex: Female : 1960 Arrival Date: 12/01/2018 Time: 03:41 Bed 8 Private MD: Diagnosis: Urinary tract infection, site not specified Presentation: 12/01 04:00 Presenting complaint: Patient states: she woke up this morning with chills, shaking, bb teeth chattering, having difficulty catching her breath. Transition of care: patient was not received from another setting of care. Onset of symptoms was December 01, 2018. Risk Assessment: Do you want to hurt yourself or someone else? Patient reports no desire to harm self or others. Initial Sepsis Screen: Does the patient meet any 2 criteria? Yes Does the patient have a suspected source of infection? Yes: Other: unknown If YES to both, name of provider notified: Fitz Ray MD. Care prior to arrival: None. 04:00 Method Of Arrival: Ambulatory bb 04:00 Acuity: LYNN 2 bb Historical: - Allergies: 04:04 Sulfa (Sulfonamide Antibiotics); bb - Home Meds: 04:04 Prednisone Oral [Active]; Lasix Oral [Active]; bb - PMHx: 04:04 pericardial effusion; bb - PSHx: 04:04 pericardial window x 2; bb - Immunization history:: Adult Immunizations up to date. - Social history:: Smoking status: Patient/guardian denies using tobacco, Patient/guardian denies using alcohol, street drugs. - Ebola Screening: : No symptoms or risks identified at this time. Screenin:04 Abuse screen: Denies threats or abuse. Denies injuries from another. Nutritional aa1 screening: No deficits noted. Tuberculosis screening: No symptoms or risk factors identified. Fall Risk None identified. Assessment: 04:04 General: Appears in no apparent distress. comfortable, Behavior is cooperative, aa1 anxious. Pain: Denies pain. Neuro: Level of Consciousness is awake, alert, obeys commands, Oriented to person, place, time, situation, Moves all extremities. Full function Gait is steady, Speech is normal, Reports shaking all over. Cardiovascular: Denies chest pain, palpitations, shortness of breath, Heart tones S1 S2 present Rhythm is regular. Respiratory: Airway is patent Respiratory effort is even, unlabored, Respiratory pattern is regular, tachypnea Denies shortness of breath. GI: No signs and/or symptoms were reported involving the gastrointestinal system. : No signs and/or symptoms were reported regarding the genitourinary system. EENT: No signs and/or symptoms were reported regarding the EENT system. Derm: Skin is intact, is healthy with good turgor, Skin is pink, warm \T\ dry. Musculoskeletal: Circulation, motion, and sensation intact. Capillary refill < 3 seconds. 04:45 Reassessment: pt states she is feeling much better, she can breath now, resp unlabored, bb family at bedside. 05:21 Reassessment: Patient appears in no apparent distress at this time. Patient and/or aa1 family updated on plan of care and expected duration. Pain level reassessed. Patient is alert, oriented x 3, equal unlabored respirations, skin warm/dry/pink. Awaiting CT results. 06:11 Reassessment: Patient appears in no apparent distress at this time. Patient and/or aa1 family updated on plan of care and expected duration. Pain level reassessed. Patient is alert, oriented x 3, equal unlabored respirations, skin warm/dry/pink. Awaiting CT results. Vital Signs: 04:04 BP 128 / 76; Pulse 128; Resp 24 S; Temp 103.4(O); Pulse Ox 97% on R/A; Weight 77.11 kg bb (R); Height 5 ft. 2 in. (157.48 cm) (R); Pain 4/10; 04:45 Temp 101.9(O); bb 05:21 BP 91 / 58; Pulse 98; Resp 20; Pulse Ox 96% on R/A; aa1 06:11 BP 97 / 65; Pulse 93; Resp 18; Temp 98.9(O); Pulse Ox 99% ; Pain 0/10; aa1 04:04 Body Mass Index 31.09 (77.11 kg, 157.48 cm) bb ED Course: 03:41 Patient arrived in ED. ds1 03:51 Fitz Ray MD is Attending Physician. tw4 04:01 Shavonne Alanis, DEVONTE is Primary Nurse. aa1 04:03 Triage completed. bb 04:04 Arm band placed on Patient placed in an exam room, on a stretcher, on shelter monitor, bb on pulse oximetry. EKG completed in triage. Results shown to MD. Family accompanied patient. 04:04 Patient has correct armband on for positive identification. Placed in gown. Cardiac aa1 monitor on. Pulse ox on. NIBP on. 04:04 EKG done, by ED staff, reviewed by Fitz Ray MD. aa1 04:25 Inserted saline lock: 20 gauge in left antecubital area, using aseptic technique. Blood oe collected. 07:04 XRAY Chest (1 view) In Process Unspecified. EDMS 07:21 Stone Protocol In Process Unspecified. EDMS Administered Medications: 04:01 Drug: Tylenol 1000 mg Route: PO; aa1 07:25 Follow up: Response: No adverse reaction; Temperature is decreased sg 04:01 Drug: Motrin 600 mg Route: PO; aa1 07:20 Follow up: Response: No adverse reaction; Temperature is decreased sg 06:36 Not Given (Other Intervention Used): Rocephin - (cefTRIAXone) 1 grams IVPB once over 30 aa1 mins; (mix in 50 mL NS) 06:37 Drug: Rocephin 1 grams Route: IV; Rate: calculated rate; Site: right antecubital; aa1 Outcome: 07:16 Discharge ordered by . tw4 07:44 Patient left the ED. sg Addendum: 12/04/2018 09:07 Addendum: Culture Results: Positive urine culture. No further action required. Bacteria s s sensitive to prescribed antibiotic. Signatures: Dispatcher [employer] EDMS Tu Mustafa RN RN sg Shavonne Alanis RN RN aa1 Kelly Ashley ds1 Candace Miller RN RN bb Smirch, Shelby, RN RN ss Espinosa, Orlando oe Wadley, Terrence, MD MD tw4
--- NOTE | 2018-12-01 07:18 | EDPHYS ---
Physician Documentation [facility] Name: Robina Tamayo Age: 57 yrs Sex: Female : 1960 Arrival Date: 12/01/2018 Time: 03:41 Bed 8 Private MD: ED Physician Fitz Ray HPI: 12/01 04:40 This 57 yrs old Female presents to ER via Ambulatory with complaints of tw4 Shaking, Kidney Pain. 04:40 The patient presents with pain that is acute. The symptoms are located in the low back. tw4 Onset: The symptoms/episode began/occurred today. The pain does not radiate. Associated signs and symptoms: The patient has no apparent associated signs or symptoms. Severity of symptoms: At their worst the symptoms were moderate, in the emergency department the symptoms are unchanged. Historical: - Allergies: 04:04 Sulfa (Sulfonamide Antibiotics); bb - Home Meds: 04:04 Prednisone Oral [Active]; Lasix Oral [Active]; bb - PMHx: 04:04 pericardial effusion; bb - PSHx: 04:04 pericardial window x 2; bb - Immunization history:: Adult Immunizations up to date. - Social history:: Smoking status: Patient/guardian denies using tobacco, Patient/guardian denies using alcohol, street drugs. - Ebola Screening: : No symptoms or risks identified at this time. ROS: 04:40 Cardiovascular: Negative for chest pain, palpitations, and edema, Respiratory: Negative tw4 for shortness of breath, cough, wheezing, and pleuritic chest pain, Abdomen/GI: Negative for abdominal pain, nausea, vomiting, diarrhea, and constipation, MS/Extremity: Negative for injury and deformity, Skin: Negative for injury, rash, and discoloration. 04:40 Constitutional: Positive for chills, fever. 04:40 Back: Positive for flank pain. Exam: 04:40 Head/Face: Normocephalic, atraumatic. Chest/axilla: Normal chest wall appearance and tw4 motion. Nontender with no deformity. No lesions are appreciated. Cardiovascular: Regular rate and rhythm with a normal S1 and S2. No gallops, murmurs, or rubs. Normal PMI, no JVD. No pulse deficits. Respiratory: Lungs have equal breath sounds bilaterally, clear to auscultation and percussion. No rales, rhonchi or wheezes noted. No increased work of breathing, no retractions or nasal flaring. Abdomen/GI: Soft, non-tender, with normal bowel sounds. No distension or tympany. No guarding or rebound. No evidence of tenderness throughout. 04:40 Back: No spinal tenderness. No costovertebral tenderness. Full range of motion. MS/ Extremity: Pulses equal, no cyanosis. Neurovascular intact. Full, normal range of motion. Neuro: Awake and alert, GCS 15, oriented to person, place, time, and situation. Cranial nerves II-XII grossly intact. Motor strength 5/5 in all extremities. Sensory grossly intact. Cerebellar exam normal. Normal gait. 04:40 Constitutional: The patient appears agitated. Vital Signs: 04:04 BP 128 / 76; Pulse 128; Resp 24 S; Temp 103.4(O); Pulse Ox 97% on R/A; Weight 77.11 kg bb (R); Height 5 ft. 2 in. (157.48 cm) (R); Pain 4/10; 04:45 Temp 101.9(O); bb 05:21 BP 91 / 58; Pulse 98; Resp 20; Pulse Ox 96% on R/A; aa1 06:11 BP 97 / 65; Pulse 93; Resp 18; Temp 98.9(O); Pulse Ox 99% ; Pain 0/10; aa1 04:04 Body Mass Index 31.09 (77.11 kg, 157.48 cm) bb MDM: 04:15 Patient medically screened. tw4 12/02 06:05 Differential diagnosis: Cholelithiasis chronic back pain, Epidural or Perispinal Abcess tw4 Peptic Ulcer Pyelonephritis. Data reviewed: vital signs, nurses notes. Data interpreted: Pulse oximetry: Interpretation: normal. Counseling: I had a detailed discussion with the patient and/or guardian regarding: the historical points, exam findings, and any diagnostic results supporting the discharge/admit diagnosis, radiology results. Special discussion: I discussed with the patient/guardian in detail that at this point there is no indication for admission to the hospital. It is understood, however, that if the symptoms persist or worsen the patient needs to return immediately for re-evaluation. 12/01 04:02 Order name: Basic Metabolic Panel; Complete Time: 07:08 tw4 03/24 07:08 Interpretation: Normal except: GLUC 136; GFR 60. 12/01 04:02 Order name: CBC with Diff; Complete Time: 07:08 12/01 07:08 Interpretation: Normal except: HGB 11.7; HCT 34.7; RDW 17.8; NIMISHA% 87.8; LYM% 8.2. 12/01 04:02 Order name: LFT's; Complete Time: 07:09 12/01 07:09 Interpretation: Normal except: AST 57; ALT 88; ALK 148; BILID 0.3; ALB 2.7; GLOB 4.0; tw4 A/G 0.7. 12/01 04:02 Order name: Magnesium; Complete Time: 07:09 12/01 07:09 Interpretation: Normal except: MG 1.8. 12/01 04:02 Order name: NT PRO-BNP; Complete Time: 07:09 12/01 07:09 Interpretation: Normal except: NT PRO-BNP 383. 12/01 04:02 Order name: PT-INR 12/01 04:02 Order name: Troponin (emerg Dept Use Only); Complete Time: 07:10 12/01 07:10 Interpretation: Within normal limits: TROPED < 0.02. 12/01 04:02 Order name: Flu; Complete Time: 07:10 12/01 07:10 Interpretation: Within normal limits. 12/01 05:10 Order name: CBC Smear Scan EDHI 12/01 06:30 Order name: Urine Dipstick--Ancillary (enter results) ar5 12/01 06:39 Order name: Urinalysis W/Microscopic EDHI 12/01 04:02 Order name: XRAY Chest (1 view) 12/01 04:02 Order name: EKG; Complete Time: 04:03 12/01 04:02 Order name: Cardiac monitoring; Complete Time: 04:04 12/01 04:02 Order name: EKG - Nurse/Tech; Complete Time: 04:04 12/01 04:02 Order name: IV Saline Lock; Complete Time: 04:25 12/01 04:02 Order name: Labs collected and sent; Complete Time: 04:25 /24 04:02 Order name: O2 Per Protocol; Complete Time: 04:04 tw4 12/01 04:02 Order name: O2 Sat Monitoring; Complete Time: 04:04 4 12/01 04:03 Order name: Urine Dipstick-Ancillary (obtain specimen); Complete Time: 06:17 tw4 12/01 04:39 Order name: CT Stone Protocol tw4 12/01 04:40 Order name: Stone Protocol EDMS 12/01 07:24 Order name: Urine Culture EDMS Administered Medications: 12/01 04:01 Drug: Tylenol 1000 mg Route: PO; aa1 07:25 Follow up: Response: No adverse reaction; Temperature is decreased sg 04:01 Drug: Motrin 600 mg Route: PO; aa1 07:20 Follow up: Response: No adverse reaction; Temperature is decreased sg 06:36 Not Given (Other Intervention Used): Rocephin - (cefTRIAXone) 1 grams IVPB once over 30 aa1 mins; (mix in 50 mL NS) 06:37 Drug: Rocephin 1 grams Route: IV; Rate: calculated rate; Site: right antecubital; aa1 Disposition: 12/01/18 07:16 Discharged to Home. Impression: Urinary tract infection, site not specified. - Condition is Stable. - Discharge Instructions: Urinary Tract Infection, Adult, Antibiotic Medicine, [id number]. - Prescriptions for Zofran 4 mg Oral Tablet - take 1 tablet by ORAL route every 12 hours As needed; 20 tablet. Cipro 500 mg Oral Tablet - take 1 tablet by ORAL route every 12 hours for 7 days; 14 tablet. - Work release form, Medication Reconciliation Form, Thank You Letter, Antibiotic Education, Prescription Opioid Use form. - Follow up: Private Physician; When: Upon discharge from the Emergency Department; Reason: If symptoms return, Recheck today's complaints, Continuance of care. - Problem is new. - Symptoms have improved. Signatures: Dispatcher [employer] EDMS Tu Mustafa RN RN sg Autenrieth, Alissa RN RN aa1 Candace Miller RN RN Fitz Alcala MD MD tw4 Corrections: (The following items were deleted from the chart) 06:39 06:25 UA MICROSCOPIC+U.LAB.BRZ ordered. EDHI EDMS 06:39 06:26 URINALYSIS+U.LAB.BRZ ordered. [facility] EDMS 07:44 07:16 12/01/2018 07:16 Discharged to Home. Impression: Urinary tract infection, site sg not specified. Condition is Stable. Forms are Medication Reconciliation Form, Thank You Letter, Antibiotic Education, Prescription Opioid Use. Follow up: Private Physician; When: Upon discharge from the Emergency Department; Reason: If symptoms return, Recheck today's complaints, Continuance of care. Problem is new. Symptoms have improved. tw4
[2018-12-01 07:22] LABS: Urine Bacteria >50 /HPF (<20); Urine Culture Reflex Order REFLEXED
[2018-12-01 07:36] LABS: Urine Blood 2+ (NEG); Urine Glucose NEGATIVE (NEG); Urine Protein 3+ (NEG); Urine Specific Gravity 1.015 (1.005-1.030)
[2018-12-01 07:53] VITALS: BP 97/65; TEMP 98.9; O2SAT 99
--- NOTE | 2018-12-01 10:08 | RAD REPORT ---
EXAM DESCRIPTION: RAD - Chest Single View - 12/01/2018 8:19 am CLINICAL HISTORY: CHEST PAIN Chest pain. COMPARISON: Chest Pa And Lat (2 Views) dated 10/16/2018; Chest Single View dated 09/22/2018; ABDOMEN 1 VIEW KUB dated 11/10/2014; ABDOMEN 1 VIEW KUB dated 11/10/2013; Stone Protocol dated 12/01/2018 FINDINGS: Portable technique limits examination quality. The lungs are grossly clear. The heart is normal in size. No displaced fractures. IMPRESSION: No acute intrathoracic process suspected.
--- NOTE | 2018-12-01 20:19 | EKG ---
Test Date: 2018-12-01 Test Time: 04:00:49 Ventilator Specialist: YUVAL MEASUREMENT RESULTS: Intervals: Rate: 120 NE: 118 QRSD: 84 QT: 306 QTc: 432 [place]: P: 2 NE: 118 QRS: 116 T: 33 INTERPRETIVE STATEMENTS: Sinus tachycardia Possible Left atrial enlargement Left posterior fascicular block Abnormal ECG Compared to ECG 09/22/2018 12:16:17 Left posterior fascicular block now present Sinus rhythm no longer present Myocardial infarct finding no longer present Electronically Signed On 12-01-18 20:18:01 CDT by Chiki Bernal
--- NOTE | 2018-12-02 11:54 | RAD REPORT ---
EXAM DESCRIPTION: Stone Protocol CLINICAL HISTORY: 7 years Female, KIDNEY STONES Comparison: None TECHNIQUE: Contiguous axial images of the abdomen and pelvis were obtained followed by reconstructio n images. This exam was performed according to our departmental dose-optimization program, which incl udes automated exposure control, adjustment of the mA and/or kV according to patient size and/or use of iterative reconstruction technique. FINDINGS: Lung bases: Lung bases are clear. Heart: Visualized heart is within normal limits in size. Liver: Unremarkable. No focal liver lesion. Gallbladder: Unremarkable. No gallstones. No gallbladder wall thickening or pericholecystic fluid. Spleen: Unremarkable Pancreas: Pancreas is unremarkable. Adrenal glands: Within normal limits. Kidneys/ureters: 3 mm calculus within the left renal upper pole. No hydronephrosis. No ureteral calcu dee dee. Bladder: Unremarkable. Pelvic organs: No acute abnormality Vascular structures: within normal limits Peritoneum: No free fluid. Lymph nodes: No abnormal lymph nodes. Stomach/small bowel/colon: Stomach is unremarkable. Small bowel is unremarkable. Colon is unremar kable. Appendix: No evidence of appendicitis. Bones: Mild spine degenerative changes. Soft tissues: Unremarkable.. IMPRESSION: No acute intra-abdominal abnormality. Left nonobstructive nephrolithiasis. Electronically signed by: Andrew Hicks MD 12/01/2018 5:45 AM CDT Due to temporary technical issues with the PACS/Fluency reporting system, reports are being signed by the in house radiologist as a courtesy to ensure prompt reporting. The interpreting radiologist is f ully responsible for the content of the report.
== END 2018-12-01 07:44 | disposition home or self-care (01) ==
LOC: ER 03:40
DX: N39.0 Urinary tract infection, site not specified (principal); Z88.2 Allergy status to sulfonamides
CPT/HCPCS: 36415; 71045; 74176; 76377; 80048; 80076; 81001; 81003; 83735; 83880; 84484; 85025; 85610; 87077; 87086; 87088; 87186; 87804; 93005; 96374; 99284; J0696